=== PATIENT | male | born 1985 | race Caucasian/White ===

== ENCOUNTER 2016-08-12 14:07 | Emergency (ER) | END 2016-08-12 15:38 | disposition left against medical advice (07) | LOC: ER 14:07 | DX: Z53.21 Procedure and treatment not carried out due to patient leaving prior to being seen by health care provider (principal) ==

== ENCOUNTER 2016-11-28 13:47 | Emergency (ER) | payer SELFPAY ==
--- NOTE | 2016-11-28 15:31 | ER Document Report ---
HPI - HPI Pain Level: 5 Notes: Patient is a 31-year-old male who presents complaining of a sore throat and needing his urinary catheter removed. Patient was treated twice on November 26 for trouble urinating and exposure to chlamydia. Patient was given Zithromax and Rocephin during that time, but returned later that day with dysuria and had a catheter placed that was to be removed on November 28 (today). Patient states that he has anxiety and is afraid of falling the urinary catheter out. Patient states that he is still using his eyedrops as directed. Patient states that when a sore throat started he called the pharmacy and the pharmacy told him to stop the antibiotic in case it was an allergy. Patient did not notice any rash or throat swelling. Patient states he is still able to eat and drink, but does have a decreased appetite because of the sore throat. Denies any headache, fever, neck pain, URI, drooling, hoarseness, chest pain, palpitations , syncope, cough, shortness of breath, wheeze, dyspnea, abdominal pain, nausea/ vomiting/diarrhea, or rash. - ROS Notes: REVIEW OF SYSTEMS: CONSTITUTIONAL : Denies fever, chills, or sweats. Denies recent illness. EENT: see hpi CARDIOVASCULAR: Denies chest pain. Denies palpitations or racing or irregular heart beat. Denies ankle edema. RESPIRATORY: Denies cough, cold, or chest congestion. Denies shortness of breath, difficulty breathing, or wheezing. GASTROINTESTINAL: Denies abdominal pain or distention. Denies nausea, vomiting , or diarrhea. Denies blood in vomitus, stools, or per rectum. Denies black, tarry stools. Denies constipation. GENITOURINARY: see hpi MUSCULOSKELETAL: Denies back or neck pain or stiffness. Denies joint pain or swelling. SKIN: Denies rash, lesions or sores. NEUROLOGICAL: Denies confusion or altered mental status. Denies passing out or loss of consciousness. Denies dizziness or lightheadedness. Denies headache. Denies weakness or paralysis or loss of use of either side. Denies problems with gait or speech. Denies sensory loss, numbness, or tingling. ALL OTHER SYSTEMS REVIEWED AND NEGATIVE. Dictation was performed using [employer] recognition software - DERM Skin Color: Normal Past Medical History - Social History Smoking Status: Unknown if Ever Smoked Family History: None Patient has suicidal ideation: No Patient has homicidal ideation: No Renal/ Medical History: Denies: Hx Peritoneal Dialysis Psychiatric Medical History: Reports: Hx Bipolar Disorder Vertical Provider Document - CONSTITUTIONAL Agree With Documented VS: Yes Notes: PHYSICAL EXAMINATION: GENERAL: Well-appearing, well-nourished and in no acute distress. HEAD: Atraumatic, normocephalic. EYES: Pupils equal round and reactive to light, extraocular movements intact, sclera anicteric, conjunctiva are mildly injected b/l. No d/c. ENT: EAC clear b/l. TM's intact b/l without erythema, fluid, or perforation. Nares patent and without discharge. oropharynx mildly erythemic without exudates. No tonsilar hypertrophy or erythema. Moist mucous membranes. No sinus tenderness. No resp compromise. Uvula midline. No palatine shift. No tongue protrusion. NECK: Normal range of motion, supple without lymphadenopathy. No rigidity/ meningismus. LUNGS: Breath sounds clear to auscultation bilaterally and equal. No wheezes rales or rhonchi. HEART: Regular rate and rhythm without murmurs, rubs, gallops. ABDOMEN: Soft, nontender, nondistended abdomen. No guarding, no rebound. No masses appreciated. Normal bowel sounds present. No CVA tenderness bilaterally. no obv hepatosplenomegaly. : Urine cath in place. Bag visualized and urine is noted with a red color from the pyridium. Extremities: No cyanosis, clubbing, or edema b/l. Peripheral pulses 2+. Capillary refill less than 3 seconds. NEUROLOGICAL: Cranial nerves grossly intact. Normal speech, normal gait. Normal sensory, motor exams PSYCH: Normal mood, normal affect. SKIN: Warm, Dry, normal turgor, no rashes or lesions noted. - INFECTION CONTROL TRAVEL OUTSIDE OF THE [place] IN LAST 30 DAYS: No - RESPIRATORY O2 Sat by Pulse Oximetry: 96 Course - Re-evaluation Re-evalutation: 11/28/16 16:04 Patient is an afebrile, well-hydrated, 31-year-old male who presents the ED with sore throat, suspect viral, and urinary catheter removal. Vitals are stable. PE otherwise unremarkable at this time. Low suspicion for any meningitis, sepsis, peritonsillar/pharyngeal abscess, respiratory compromise, Tommie's, temporal arteritis, or other emergent systemic condition at this time. Patient is aware this condition can change from initial presentation and he needs to monitor symptoms closely. Reviewed with the patient that he needs to push his fluids, and he may continue his Pyridium and eyedrops as directed. His urine culture did not grow any bacteria at this time. Reviewed with patient that he may have some discomfort with urination and still may have scant hematuria. Advised that he needs to call and schedule an appointment with urology on their office is open next. Conservative measures otherwise for symptoms. Recheck with your PCM this week as well. Return to the ED with any worsening/concerning symptoms otherwise as reviewed in discharge. Patient is in agreement. - Vital Signs Vital signs: Temp Pulse Resp BP Pulse Ox 99.9 F 109 H 16 144/64 H 96 11/28/16 13:55 11/28/16 13:55 11/28/16 13:55 11/28/16 13:55 11/28/16 13:55 Discharge - Discharge Clinical Impression: Sore throat (viral), Encounter for removal of urinary catheter Condition: Stable Disposition: HOME, SELF-CARE Instructions: Sore Throat ([facility]), Urinary Anesthetic Agent ([facility]), Viral Syndrome ([facility]) Additional Instructions: Maintain adequate fluid intake Take meds as directed Salt water gargles, throat sprays, mouthwash rinse, peroxide gargles tylenol/ibuprofen as needed over the counter cold medication as needed for symptoms F/u: with your PCM in 2-3 days for a recheck Call to schedule an appointment with a Urologist* Return to the ED with any fever, worsening pain, chest pain, neck pain/stiffness , shortness of breath, cough, drooling, trouble swallowing/breathing, abdominal pain, n/v/d, rash, hematuria, anuria, or worsening/concerning symptoms otherwise. Prescriptions: Nystatin/Dexameth/Diphen [Magic Mouthwash ([facility] Formula) Susp] 5 ml PO QID #120 ml Referrals: [facility] [Provider Group] - Follow up as needed WAYNE STOKES II, MD [CR PAGE] - 12/21/16
[2016-11-28 15:51] VITALS: BP 146/82
== END 2016-11-28 15:50 | disposition home or self-care (01) ==
LOC: ER 13:47
DX: J02.8 Acute pharyngitis due to other specified organisms (principal); B97.89 Other viral agents as the cause of diseases classified elsewhere; Z46.6 Encounter for fitting and adjustment of urinary device; R63.0 Anorexia
CPT/HCPCS: 99282